=== PATIENT | female | born 1995 | race Caucasian/White ===

== ENCOUNTER 2020-03-24 13:36 | Emergency (ER) | payer OTHER ==
[~2020-03-24] VITALS: Ht 172.7 cm; Wt 68.0 kg
[2020-03-24 14:41] VITALS: Ht 172.7 cm; Wt 68.0 kg
[2020-03-24 17:12] LABS: UA SPECIFIC GRAVITY 1.015 (1.005-1.035); microscopic required? YES; urine erythrocyte 3+ (NEGATIVE)
[2020-03-24 18:23] VITALS: BP 131/79
== END 2020-03-24 18:23 | disposition home or self-care (01) ==
LOC: ED 13:36
DX: N12 Tubulo-interstitial nephritis, not specified as acute or chronic (principal); Z88.2 Allergy status to sulfonamides
CPT/HCPCS: J0696; J1885; Q0162